=== PATIENT | female | born 1975 ===

== ENCOUNTER 2017-01-14 00:21 | Emergency (ER) | payer OTHER ==
[2017-01-14 00:22] VITALS: BMI 26.3
[2017-01-14 00:42] VITALS: BP 130/87; PULSE 70; RESP 16; TEMP 97.7; O2SAT 98
[2017-01-14] MEDS ORDERED: Sodium Chloride 0.9% 1,000 ML IV STA (00:46)
[2017-01-14 01:12] LABS: BASO # 0.1 K/uL (0.0-0.2); BASO % 0.9 % (0.0-2.0); EOS # 0.2 K/uL (0.0-0.7); EOS % 1.7 % (0.0-4.0); HEMATOCRIT 41.5 % (34.0-47.0); LYMPH # 3.5 K/uL (1.0-4.3); LYMPH % 35.1 % (20.0-40.0); MEAN CELL VOLUME 93.7 fl (81.0-99.0); MEAN CORPUSCULAR HEMOGLOBIN 31.1 pg (27.0-31.0); MEAN CORPUSCULAR HGB CONC 33.2 g/dL (33.0-37.0); MONO # 0.7 K/uL (0.0-0.8); MONO % 7.3 % (0.0-10.0); NEUT # 5.4 K/uL (1.8-7.0); RED CELL DISTRIBUTION WIDTH 12.7 % (11.5-14.5); WHITE BLOOD COUNT 9.9 K/uL (4.8-10.8)
[2017-01-14 01:20] LABS: BLOOD UREA NITROGEN 19 mg/dl (7-17); CALCIUM 10.2 mg/dL (8.4-10.2); CARBON DIOXIDE 24 mmol/L (22-30); CHLORIDE 105 mmol/L (98-107); GFR AFRICAN-AMERICAN > 60; GLUCOSE,RANDOM 95 mg/dL (65-105); POTASSIUM 3.9 MMOL/L (3.6-5.0); SODIUM 144 mmol/l (132-148)
--- NOTE | 2017-01-14 01:52 | ED PDOC ---
HPI: Abdomen Time Seen by Provider: 01/14/17 00:29 Chief Complaint (Nursing): Abdominal Pain Chief Complaint (Provider): abdominal pain, flank pain History Per: Patient History/Exam Limitations: no limitations Onset/Duration Of Symptoms: Hrs Outside of [place] travel?: No Current Symptoms Are (Timing): Still Present Additional Complaint(s): 41yo female with PMHx including partial or complete hysterectomy presents to the ED with c/o LLQ and left flank pain that started this morning. Patient reports every time she goes to bathroom she notices blood coming out of vagina. States she is nauseous as well. Patient was told she has either cysts or fibroids and note sure if all of uterus was removed. Denies v/d, fever, chills. Past Medical History Reviewed: Historical Data, Nursing Documentation, Vital Signs Vital Signs: Last Vital Signs Temp 97.7 F 01/14/17 00:39 Pulse 70 01/14/17 00:39 Resp 16 01/14/17 00:39 BP 130/87 01/14/17 00:39 Pulse Ox 98 01/14/17 04:29 - Medical History PMH: Anemia Denies: Chronic Kidney Disease - Surgical History Other surgeries: partial or complete hysterectomy - Family History Family History: States: No Known Family Hx - Home Medications Home Medications: Ambulatory Orders Medication Instructions Recorded Ibuprofen 600 mg PO Q6 #30 tab 03/25/16 levoFLOXacin [Levaquin] 750 mg PO DAILY #9 tab 03/25/16 traMADol [Ultram] 50 mg PO Q8 #16 tab 01/14/17 - Allergies Allergies/Adverse Reactions: Allergies Allergy/AdvReac Type Severity Reaction Status Date / Time No Known Allergies Allergy Verified 05/17/14 11:48 Review of Systems ROS Statement: Except As Marked, All Systems Reviewed And Found Negative Constitutional: Negative for: Fever, Chills Gastrointestinal: Positive for: Nausea, Abdominal Pain (LLQ ). Negative for: Vomiting, Diarrhea Genitourinary Female: Positive for: Other (blood coming out of vagina after urinating ) Musculoskeletal: Positive for: Back Pain (left flank ) Physical Exam - Reviewed Nursing Documentation Reviewed: Yes Vital Signs Reviewed: Yes - Physical Exam Appears: Positive for: Well, No Acute Distress, Uncomfortable Head Exam: Positive for: ATRAUMATIC, NORMAL INSPECTION, NORMOCEPHALIC Skin: Positive for: Normal Color, Warm, Dry Eye Exam: Positive for: Normal appearance, EOMI, PERRL ENT: Positive for: Normal ENT Inspection Neck: Positive for: Normal, Painless ROM, Supple Cardiovascular/Chest: Positive for: Regular Rate, Rhythm. Negative for: Murmur , Tachycardia Respiratory: Positive for: Normal Breath Sounds. Negative for: Wheezing, Respiratory Distress Gastrointestinal/Abdominal: Positive for: Bowel Sounds, Soft, Tenderness (LLQ ) Pelvic Exam: Positive for: External Exam Normal, Tender Adnexa (left sided ), Other (no blood in vaginal vault, cervix not seen (s/p hysterectomy) Rocio Hoskins EDT is washcloth folder) Back: Positive for: Normal Inspection. Negative for: L CVA Tenderness, R CVA Tenderness Extremity: Positive for: Normal ROM. Negative for: Deformity, Swelling Neurologic/Psych: Positive for: Alert, Oriented. Negative for: Motor/Sensory Deficits - Laboratory Results Result Diagrams: 01/14/17 00:50 01/14/17 00:51 - ECG O2 Sat by Pulse Oximetry: 98 Pulse Ox Interpretation: Normal (RA) Medical Decision Making Medical Decision Makin: Impression: ovarian torsion vs. kidney stone Plan: Type and screen Labs Morphine 2mg IVP, Toradol 30mg IVP, IVF UA and culture US transvaginal reassess 0213: US transvaginal impression: Status post hysterectomy. Right ovary is not visualized, please correlate with surgical history. Left ovary with no evidence of torsion, complex 1 cm cyst in the left ovary. Noted that menstrual status cannot be determined in this patient, this is not a simple cyst. Consider followup ultrasound in 6-12 weeks, dependent on hormonal status. 0313: CT A/P impression: No hydronephrosis, no ureteral stones identified within limits of the study. Limited evaluation of the bladder with suggestion that it may be thick walled, a finding which is associated with infection. Clinical correlation. Other findings as above. The absence of intravenous contrast greatly limits evaluation of the parenchymal organs. The absence of oral contrast limits evaluation of the gastrointestinal tract. 0421: Patient feeling much better. Advised f/u w/ COURT ASSISTANT. Results of US and CT given. Patient stable for d/c and return precautions given. Scribe Attestation: Documented by Latricia Azul acting as a scribe for Farhad Doyle MD. Provider Scribe Attestation: All medical record entries made by the Scribe were at my direction and personally dictated by me. I have reviewed the chart and agree that the record accurately reflects my personal performance of the history, physical exam, medical decision making, and the department course for this patient. I have also personally directed, reviewed, and agree with the discharge instructions and disposition. Disposition - Clinical Impression Clinical Impression: Ovarian cyst - Patient ED Disposition Is Patient to be Admitted: No - Disposition [facility]] Disposition: Routine/Home Disposition Time: 04:21 Condition: IMPROVED Prescriptions: traMADol [Ultram] 50 mg PO Q8 #16 tab Instructions: Ovarian Cyst (ED) Print Language: GREENLANDIC
--- NOTE | 2017-01-14 02:13 | US ---
EXAM: US Pelvis, Transvaginal CLINICAL HISTORY: 41 years old, female; Pain; Pelvic pain; Prior surgery; Surgery date: 6+ months; Surgery type: S/P hysterectomy; Additional info: Vb, S/P partial hyst? , Ovar cysts, R/O torsion TECHNIQUE: Real-time transvaginal pelvic ultrasound (complete) with image documentation. Transvaginal imaging was used for better evaluation of the endometrium and adnexa. EXAM DATE/TIME: Exam ordered 01/14/2017 12:45 AM COMPARISON: CT - ABD PELVIS IV CONTRAST ONLY 03/25/2016 5:52:30 PM FINDINGS: Uterus/cervix: Status post hysterectomy approximately 2 years ago as per the ultrasound worksheet. Right ovary: The right ovary was not visualized. Left ovary: Noted that patient had CT of the abdomen and pelvis March 25, 2016, report at that time includes absent uterus and suspected left ovarian cyst. Images are not available. The left ovary measures 2.5 x 1.9 x 3.5 cm. Doppler flow is demonstrated. The left ovary contains findings measuring 1.5 cm in keeping with a simple cyst, and 1cm noting that this cyst is seen for example series 1 image 19 has some thickening and nodularity of the wall. This could represent a physiologic cyst, however noting the complex findings, followup is recommended. Free fluid: No free fluid. Bladder: Empty bladder which cannot be evaluated with this probe. IMPRESSION: Status post hysterectomy. Right ovary is not visualized, please correlate with surgical history. Left ovary with no evidence of torsion, complex 1 cm cyst in the left ovary. Noted that menstrual status cannot be determined in this patient, this is not a simple cyst. Consider followup ultrasound in 6-12 weeks, dependent on hormonal status.
--- NOTE | 2017-01-14 03:13 | CT ---
EXAM: CT Abdomen and Pelvis Without Intravenous Contrast CLINICAL HISTORY: 41 years old, female; Pain; Abdominal pain; Flank; Left; Prior surgery; Surgery date: 6+ months; Surgery type: Hysterectomy; Additional info: R/O kidney stone to l TECHNIQUE: Axial computed tomography images of the abdomen and pelvis without intravenous contrast. This CT exam was performed using one or more of the following dose reduction techniques: automated exposure control, adjustment of the mA and/or kV according to patient size, and/or use of iterative reconstruction technique. Coronal and sagittal reformatted images were created and reviewed. EXAM DATE/TIME: Exam ordered 01/14/2017 2:21 AM COMPARISON: CT - ABD PELVIS IV CONTRAST ONLY 03/25/2016 5:52:30 PM FINDINGS: Lower thorax: Lung bases with no evidence of acute infection. ABDOMEN: Liver: Series 2 image 10 there is a too small to characterize hypoattenuating finding in the liver, probably medial segment left lobe. This was also seen in March 2016, series 3 image 26. There is no apparent interval change. Gallbladder and bile ducts: The gallbladder is collapsed. No calcified stones. No ductal dilation. Pancreas: Unremarkable. No ductal dilation. Spleen: Unremarkable. No splenomegaly. Adrenals: Unremarkable. No mass. Kidneys and ureters: There is no hydronephrosis of either kidney. No ureteral stones are seen noting that punctate stones or noncalcified stones may not be well seen on CT. Stomach and bowel: The absence of intravenous contrast greatly limits evaluation of the parenchymal organs. The absence of oral contrast limits evaluation of the gastrointestinal tract. Surgical changes of the anterior abdominal wall with no evidence of hernias containing bowel. There is diverticular disease, there are no definite findings of acute diverticulitis. There are no findings to suggest bowel obstruction. Appendix: The appendix is well-seen and is normal. PELVIS: Bladder: Bladder is partly collapsed limiting evaluation. Cannot exclude some thickening of the bladder wall, a finding which is associated with urinary tract infection. Clinical correlation. Reproductive: Uterus is surgically absent. Please note that the ovaries are not well evaluated on this noncontrast CT. ABDOMEN and PELVIS: Intraperitoneal space: No free air. No significant fluid collection. Bones/joints: Bony structures with no acute fractures. No dislocation. Soft tissues: See above. Vasculature: Unremarkable. No abdominal aortic aneurysm. Lymph nodes: Unremarkable. No enlarged lymph nodes. IMPRESSION: No hydronephrosis, no ureteral stones identified within limits of the study. Limited evaluation of the bladder with suggestion that it may be thick walled, a finding which is associated with infection. Clinical correlation. Other findings as above. The absence of intravenous contrast greatly limits evaluation of the parenchymal organs. The absence of oral contrast limits evaluation of the gastrointestinal tract.
[2017-01-14 03:16] LABS: RBC URINE 1 /hpf (0-3); URINE BILIRUBIN NEGATIVE (NEGATIVE); URINE BLOOD NEGATIVE (NEGATIVE); URINE COLOR COLORLESS (YELLOW); URINE GLUCOSE (UA) NEG (Normal); URINE KETONE NEGATIVE (NEGATIVE); URINE LEUKOCYTE ESTERASE NEG Leu/uL (Negative); URINE PROTEIN NEGATIVE (NEGATIVE); URINE UROBILINOGEN 0.2-1.0 mg/dL (0.2-1.0); WBC URINE 1 /hpf (0-5)
== END 2017-01-14 04:46 | disposition home or self-care (01) ==
LOC: H.ER 00:21
DX: N83.209 Unspecified ovarian cyst, unspecified side (principal); Z90.710 Acquired absence of both cervix and uterus; Z98.890 Other specified postprocedural states

== ENCOUNTER 2017-11-01 21:06 | Emergency (ER) | payer SELFPAY ==
[2017-11-01 21:06] VITALS: BMI 26.3
[2017-11-01 21:23] VITALS: BP 118/73; PULSE 112; RESP 18; O2SAT 99
--- NOTE | 2017-11-01 22:52 | ED PDOC ---
HPI: CCC, URI, Sore Throat Time Seen by Provider: 11/01/17 21:49 Chief Complaint (Nursing): Flu-like Symptoms Chief Complaint (Provider): Flu-like Symptoms History Per: Patient History/Exam Limitations: no limitations Current Symptoms Are (Timing): Still Present Additional Complaint(s): 42 year old female with medical history of anemia, who presents to the emergency department with a complaint of flu-like symptoms including fever, cough, generalized bodyache and vomiting ongoing for 2 days. Denied any chest pain or shortness of breath. Patient stated she took Tylenol with no improvement. PMD: none provided Past Medical History Reviewed: Historical Data, Nursing Documentation, Vital Signs Vital Signs: Last Vital Signs Temp 101.7 F H 11/01/17 22:23 Pulse 112 H 11/01/17 21:19 Resp 18 11/01/17 21:19 BP 118/73 11/01/17 21:19 Pulse Ox 99 11/01/17 22:55 - Medical History PMH: Anemia Denies: Chronic Kidney Disease - Surgical History Surgical History: Denies: No Surg Hx Other surgeries: hysterectomy - Family History Family History: States: Unknown Family Hx - Social History Current smoker - smoking cessation education provided: No Drugs: Denies - Home Medications Home Medications: Ambulatory Orders Medication Instructions Recorded Ibuprofen 600 mg PO Q6 #30 tab 03/25/16 levoFLOXacin [Levaquin] 750 mg PO DAILY #9 tab 03/25/16 traMADol [Ultram] 50 mg PO Q8 #16 tab 01/14/17 - Allergies Allergies/Adverse Reactions: Allergies Allergy/AdvReac Type Severity Reaction Status Date / Time No Known Allergies Allergy Verified 05/17/14 11:48 Review of Systems ROS Statement: Except As Marked, All Systems Reviewed And Found Negative Constitutional: Positive for: Fever, Other (generalized bodyache) Cardiovascular: Negative for: Chest Pain Respiratory: Positive for: Cough, Sputum (yellow). Negative for: Shortness of Breath Gastrointestinal: Positive for: Vomiting Physical Exam - Reviewed Nursing Documentation Reviewed: Yes Vital Signs Reviewed: Yes - Physical Exam Appears: Positive for: Non-toxic, Uncomfortable ENT: Positive for: Normal ENT Inspection, Pharynx Is (within normal limits). Negative for: Pharyngeal Erythema, Tonsillar Exudate Cardiovascular/Chest: Positive for: Chest Non Tender, Tachycardia. Negative for : Regular Rate, Rhythm, Bradycardia Respiratory: Positive for: Normal Breath Sounds. Negative for: Decreased Breath Sounds, Wheezing, Respiratory Distress Gastrointestinal/Abdominal: Positive for: Normal Exam, Soft. Negative for: Tenderness Neurologic/Psych: Positive for: Alert, Oriented - ECG O2 Sat by Pulse Oximetry: 99 (RA) Pulse Ox Interpretation: Normal Medical Decision Making Medical Decision Making: Initial Impression: Viral illness Initial Plan: * Urine * CXR * Motrin 600mg PO * Tylenol 650mg PO * Zofran ODT 4mg PO * Influenza A B Scribe Attestation: Documented by Loree Stewart, acting as a scribe for Emerita Mirza MD. Provider Scribe Attestation: All medical record entries made by the Scribe were at my direction and personally dictated by me. I have reviewed the chart and agree that the record accurately reflects my personal performance of the history, physical exam, medical decision making, and the department course for this patient. I have also personally directed, reviewed, and agree with the discharge instructions and disposition. Disposition - Disposition Forms: [employer] (Tajik)
[2017-11-02 00:29] VITALS: TEMP 99.1
--- NOTE | 2017-11-02 09:15 | RAD ---
HISTORY: Cough, fever COMPARISON: Comparison made with chest radiograph 01/06/2015. TECHNIQUE: Chest PA and lateral FINDINGS: LUNGS: Poor inspiration with low lung volumes, crowded bronchovascular markings and mild bibasilar atelectasis. Re- demonstrated is a small calcified granuloma right lateral mid to upper lung field. PLEURA: No significant pleural effusion identified. No pneumothorax apparent. CARDIOVASCULAR: Normal. OSSEOUS STRUCTURES: No significant abnormalities. VISUALIZED UPPER ABDOMEN: Normal. OTHER FINDINGS: None. IMPRESSION: Poor inspiration with low lung volumes, crowded bronchovascular markings and mild bibasilar atelectasis. Re- demonstrated is a small calcified granuloma right lateral mid to upper lung field.
== END 2017-11-02 01:00 | disposition home or self-care (01) ==
LOC: H.ER 21:06
DX: J09.X2 Influenza due to identified novel influenza A virus with other respiratory manifestations (principal); D64.9 Anemia, unspecified; J84.10 Pulmonary fibrosis, unspecified; Z90.710 Acquired absence of both cervix and uterus

== ENCOUNTER 2019-01-31 23:26 | Emergency (ER) | payer OTHER, SELFPAY ==
[2019-01-31 23:27] VITALS: BMI 26.3
[2019-01-31 23:35] VITALS: TEMP 98.3; O2SAT 99
[2019-02-01] MEDS ORDERED: Iohexol 240 (50 ml) PO ONE (00:51)
--- NOTE | 2019-02-01 01:08 | ED PDOC ---
HPI: Abdomen Time Seen by Provider: 01/31/19 23:30 Chief Complaint (Nursing): Abdominal Pain Chief Complaint (Provider): Abdominal pain History Per: Patient, Manager Call (Patient's preferred historic interpreter is her boyfriend who is at bedside) History/Exam Limitations: no limitations Onset/Duration Of Symptoms: Days (6) Outside of [place] travel?: No Current Symptoms Are (Timing): Still Present Location Of Pain/Discomfort: Diffuse Quality Of Discomfort: Gas Associated Symptoms: Vomiting. denies: Fever, Chills, Nausea, Diarrhea, Loss Of Appetite, Back Pain, Chest Pain, Constipation, Urinary Symptoms Last Bowel Movement: Today (2 hrs ago, normal) Additional History Per: Patient Additional Complaint(s): 43yo female, otherwise well with history of uterine fibroids, comes to ER reporting 6 days of diffuse abdominal pain associated with bloating and vomiting. She denies any associated fever, diarrhea or urinary symptoms. No medications taken for symptoms. PMD: Dr. Leonard ([facility]) Past Medical History Reviewed: Historical Data, Nursing Documentation, Vital Signs Vital Signs: Last Vital Signs Temp 98.3 F 01/31/19 23:33 Pulse 71 01/31/19 23:33 Resp 16 01/31/19 23:33 BP 122/70 01/31/19 23:33 Pulse Ox 99 01/31/19 23:33 Primary Care Provider: Rosana Leonard ([facility]) - Medical History PMH: Anemia Denies: Chronic Kidney Disease - Surgical History Surgical History: Hernia Repair, - Family History Family History: States: No Known Family Hx - Social History Current smoker - smoking cessation education provided: No Alcohol: None Drugs: Denies - Home Medications Home Medications: Ambulatory Orders Medication Instructions Recorded Ibuprofen 600 mg PO Q6 #30 tab 03/25/16 levoFLOXacin [Levaquin] 750 mg PO DAILY #9 tab 03/25/16 traMADol [Ultram] 50 mg PO Q8 #16 tab 01/14/17 Ondansetron ODT [Zofran ODT] 4 mg PO Q8H PRN #20 odt 11/01/17 Oseltamivir Cap [Tamiflu] 75 mg PO BID #9 cap 11/01/17 - Allergies Allergies/Adverse Reactions: Allergies Allergy/AdvReac Type Severity Reaction Status Date / Time No Known Allergies Allergy Verified 01/31/19 23:33 Review of Systems ROS Statement: Except As Marked, All Systems Reviewed And Found Negative Constitutional: Negative for: Fever, Chills Cardiovascular: Negative for: Chest Pain Respiratory: Negative for: Shortness of Breath Gastrointestinal: Positive for: Vomiting, Abdominal Pain. Negative for: Constipation Physical Exam - Reviewed Nursing Documentation Reviewed: Yes Vital Signs Reviewed: Yes - Physical Exam Appears: Positive for: Non-toxic, No Acute Distress Head Exam: Positive for: ATRAUMATIC, NORMAL INSPECTION, NORMOCEPHALIC Skin: Positive for: Normal Color Eye Exam: Positive for: Normal appearance, EOMI, PERRL ENT: Positive for: Normal ENT Inspection Neck: Positive for: Normal, Supple Cardiovascular/Chest: Positive for: Regular Rate, Rhythm. Negative for: Tachycardia Respiratory: Positive for: Normal Breath Sounds. Negative for: Respiratory Distress Gastrointestinal/Abdominal: Positive for: Bowel Sounds, Soft, Distended (mild). Negative for: Tenderness, Mass, Guarding, Rebound Back: Positive for: Normal Inspection Extremity: Positive for: Normal ROM Neurological/Psych: Positive for: Awake, Alert, Normal Tone - Laboratory Results Result Diagrams: 02/01/19 01:30 02/01/19 01:30 - ECG O2 Sat by Pulse Oximetry: 99 (RA) Pulse Ox Interpretation: Normal Medical Decision Making Medical Decision Making: Impression: Diffuse abdominal pain r/o appendicitis, colitis, perforation Plan: -- Labs -- IV Fluids -- CT Abdomen/Pelvis -- Zofran 4mg IV -- Toradol 15mg IV 0530 CT Abdomen/Pelvis Findings: Bilateral basilar subsegmental atelectatic pulmonary changes. 2.8 cm left ovarian cyst. Significant food residue in the stomach. Mild diffuse thickening of the bladder. Changes of pelvic congestion syndrome. The liver is of uniform attenuation without mass or defect. There is no intra or extrahepatic biliary ductal dilatation. The spleen is normal. The gallbladder is within normal limits. The pancreas is of normal contour and attenuation characteristics. There is no evidence of adrenal mass. Both kidneys demonstrate prompt and equal nephrograms. The kidneys are normal in size, shape and configuration. There is no evidence of renal or ureteral mass. No renal or ureteral calculi are identified. There is no hydroureter or hydronephrosis. No evidence for appendicitis. There is no bowel wall thickening. No evidence for small or large bowel obstruction. There is no evidence of abdominal ascites or lymphadenopathy. There is no evidence of intrinsic or extrinsic bladder mass. There is no pelvic ascites or lymphadenopathy. Images of the lung bases show no evidence of pleural or parenchymal mass. There are no pleural effusions. The bony structures are free of lytic or blastic lesions. IMPRESSION: Bilateral basilar subsegmental atelectatic pulmonary changes. 2.8 cm left ovarian cyst. Significant food residue in the stomach. Mild gastroparesis. Mild diffuse thickening of the bladder, underdistention versus mild cystitis. Changes of pelvic congestion syndrome. Labs reviewed and are grossly unremarkable, except for slight elevation of AST. UA reviewed, no signs of UTI noted. On reassessment, patient reports feeling much better. Patient informed of imaging results, and instructed to follow up with OBGYN, and PMD in 1-2 days. pt tolerated po in the ED and sleeping upon reevaluation. Stable for discharge home. Scribe Attestation: Documented by Nadia Lezama acting as a scribe for Alissa Rodríguez MD. Provider Scribe Attestation: All medical record entries made by the Scribe were at my direction and personally dictated by me. I have reviewed the chart and agree that the record accurately reflects my personal performance of the history, physical exam, medical decision making, and the department course for this patient. I have also personally directed, reviewed, and agree with the discharge instructions and disposition. Disposition - Clinical Impression Clinical Impression: Abdominal discomfort, Pelvic congestion syndrome, Ovarian cyst - Patient ED Disposition Is Patient to be Admitted: No Counseled Patient/Family Regarding: Studies Performed, Diagnosis, Need For Followup - Disposition Referrals: [facility] [Outside] [facility]] Disposition: Routine/Home Disposition Time: 05:30 Condition: IMPROVED Additional Instructions: follow up with the clinic as well as the keg raiser in 1-2 days return to the ED with any worsening or concerning symptoms Instructions: Ovarian Cysts, Stomach Ache and Stomach Upset Forms: [employer] (Malay), [employer] ([place] Islander) Print Language: ARGENTINE
[2019-02-01] MEDS ORDERED: Iohexol 240 (50 ml) ONE (01:25)
[2019-02-01 01:39] LABS: BASO # 0.1 K/uL (0.0-0.2); BASO % 0.7 % (0.0-2.0); EOS # 0.5 K/uL (0.0-0.7); EOS % 5.6 % (0.0-4.0); HEMOGLOBIN 13.2 g/dL (12.0-16.0); LYMPH # 2.1 K/uL (1.0-4.3); LYMPH % 23.5 % (20.0-40.0); MEAN CELL VOLUME 90.4 fl (81.0-99.0); MEAN CORPUSCULAR HEMOGLOBIN 31.7 pg (27.0-31.0); MEAN PLATELET VOLUME 8.5 fl (7.2-11.7); MONO # 0.7 K/uL (0.0-0.8); MONO % 7.6 % (0.0-10.0); NEUT # 5.5 K/uL (1.8-7.0); NEUT % 62.6 % (50.0-75.0); RBC 4.18 Mil/uL (3.80-5.20); RED CELL DISTRIBUTION WIDTH 12.3 % (11.5-14.5); WHITE BLOOD COUNT 8.8 K/uL (4.8-10.8)
[2019-02-01 01:48] LABS: ALB/GLOB RATIO 1.3 (1.0-2.1); ALBUMIN 4.2 g/dL (3.5-5.0); ALT/SGPT 65 U/L (9-52); AST/SGOT 33 U/L (14-36); BLOOD UREA NITROGEN 13 mg/dl (7-17); CALCIUM 8.5 mg/dL (8.4-10.2); GFR NON-AFRICAN AMERICAN > 60; LIPASE 129 U/L (23-300)
[2019-02-01 02:20] LABS: SQUAMOUS EPITHIAL 1 /hpf (0-5); URINE BACTERIA RARE (<OCC); URINE BILIRUBIN NEGATIVE (NEGATIVE); URINE BLOOD NEGATIVE (NEGATIVE); URINE CLARITY SLIGHTY-CLOUDY (Clear); URINE COLOR STRAW (YELLOW); URINE GLUCOSE (UA) NEG (NEGATIVE); URINE LEUKOCYTE ESTERASE NEG Leu/uL (Negative); URINE PROTEIN NEGATIVE (NEGATIVE); URINE UROBILINOGEN 0.2-1.0 mg/dL (0.2-1.0)
[2019-02-01] MEDS ORDERED: Iohexol 300 100 ML IJ ONE (03:53)
[2019-02-01] MEDS ORDERED: Sodium Chloride 0.9% 50 ML IV ONE (03:53)
[2019-02-01 05:40] VITALS: BP 108/65; PULSE 68; RESP 18
--- NOTE | 2019-02-01 10:57 | CT ---
Date of service: 02/01/2019 PROCEDURE: CT Abdomen and Pelvis with contrast HISTORY: abd pain bloating COMPARISON: Abdomen pelvis CT without contrast 01/14/2017. TECHNIQUE: Following the intravenous administration of iodinated contrast material, a CT examination of the abdomen and pelvis was performed from the domes of the diaphragms to the symphysis pubis with reformatted datasets provided in axial, sagittal and coronal planes. Oral contrast was not administered as per referring physician request. Contrast dose: Omnipaque 300, 95 cc Radiation dose: Total exam DLP = 533.94 mGy-cm. This CT exam was performed using one or more of the following dose reduction techniques: Automated exposure control, adjustment of the mA and/or kV according to patient size, and/or use of iterative reconstruction technique. FINDINGS: LOWER THORAX: Limited linear atelectasis or interval fibrosis right lower lobe base with bases otherwise unremarkable. LIVER: There is stable tiny lucency at the dome liver too small to characterize once again, not significantly changed in appearance and size. The remainder of the liver is unremarkable. GALLBLADDER AND BILE DUCTS: Unremarkable. PANCREAS: Unremarkable. No gross lesion or ductal dilatation. SPLEEN: Unremarkable. ADRENALS: Unremarkable. No mass. KIDNEYS AND URETERS: Unremarkable. No hydronephrosis. No solid mass. VASCULATURE: Unremarkable. No aortic aneurysm. No aortic atherosclerotic calcification or mural plaque present. BOWEL: Unremarkable. No obstruction. No gross mural thickening. APPENDIX: Normal appendix. PERITONEUM: Unremarkable. No free fluid. No free air. LYMPH NODES: Unremarkable. No enlarged lymph nodes. BLADDER: Unremarkable. REPRODUCTIVE: 2.7 x 1.8 cm left ovarian cyst. 1.6 x 1.1 cm cyst immediately cephalad to the the aforementioned cyst at the left ovary. Right adnexal compartment unremarkable. Prior hysterectomy suggested once again. Dilated venous structures at the left hemipelvis may indicate pelvic congestion syndrome. BONES: No acute fracture. OTHER FINDINGS: None. IMPRESSION: 1. 2.7 cm left ovarian cyst. Nearly adjacent 1.6 cm left ovarian cyst. Possible pelvic congestion syndrome. 2. Stable lucency at the dome of the liver too small to characterize with liver otherwise unremarkable. 3. Prior hysterectomy again evident. Preliminary report provided by Kay, 02/01/2019, 5:09 a.m..
== END 2019-02-01 05:54 | disposition home or self-care (01) ==
LOC: H.ER 23:26
DX: R10.9 Unspecified abdominal pain (principal); N94.89 Other specified conditions associated with female genital organs and menstrual cycle; N83.202 Unspecified ovarian cyst, left side; K31.84 Gastroparesis; Z90.710 Acquired absence of both cervix and uterus
CPT/HCPCS: 74177; 80053; 81003; 81025; 83690; 85025; 96374; 99283; J1885; J2405; Q9966; Q9967